=== PATIENT | female | born 1965 | race Caucasian/White ===

== ENCOUNTER 2016-09-25 11:42 | Day surgery (SDC) | payer BC ==
[~2016-09-25] VITALS: Ht 160 cm; Wt 77.1 kg
[~2016-09-25 11:42] MED LIST: COZAAR50 MG PO; TYLENOL WITH C1 EACH PO; ULTRAM50 MG PO
== END 2016-09-25 15:15 | disposition home or self-care (01) ==
LOC: PAIN 11:42
DX: M47.812 Spondylosis without myelopathy or radiculopathy, cervical region (principal); M54.2 Cervicalgia; M47.816 Spondylosis without myelopathy or radiculopathy, lumbar region; M79.1 Myalgia; M53.3 Sacrococcygeal disorders, not elsewhere classified; M47.814 Spondylosis without myelopathy or radiculopathy, thoracic region; I10 Essential (primary) hypertension; Z87.891 Personal history of nicotine dependence; Z79.891 Long term (current) use of opiate analgesic
CPT/HCPCS: J1030; J1885; J2250; J3010; S0020

== ENCOUNTER 2016-10-02 10:40 | Day surgery (SDC) | payer BC ==
[~2016-10-02] VITALS: Ht 160 cm; Wt 77.1 kg
== END 2016-10-02 12:32 | disposition home or self-care (01) ==
LOC: PAIN 10:40 → SDC 11:30 → PAIN 11:30
DX: M47.812 Spondylosis without myelopathy or radiculopathy, cervical region (principal); M54.2 Cervicalgia; M47.816 Spondylosis without myelopathy or radiculopathy, lumbar region; M47.814 Spondylosis without myelopathy or radiculopathy, thoracic region; M53.3 Sacrococcygeal disorders, not elsewhere classified; I10 Essential (primary) hypertension; M79.1 Myalgia; Z87.891 Personal history of nicotine dependence; Z79.891 Long term (current) use of opiate analgesic
CPT/HCPCS: J1030; J2250; J3010; S0020

== ENCOUNTER 2016-11-27 10:45 | Day surgery (SDC) | payer BC ==
[~2016-11-27] VITALS: Ht 157.5 cm; Wt 78.9 kg
== END 2016-11-27 13:33 | disposition home or self-care (01) ==
LOC: PAIN 10:45 → SDC 11:15 → PAIN 13:33
DX: M47.24 Other spondylosis with radiculopathy, thoracic region (principal); M51.14 Intervertebral disc disorders with radiculopathy, thoracic region; I10 Essential (primary) hypertension; Z87.891 Personal history of nicotine dependence; M79.1 Myalgia; M47.812 Spondylosis without myelopathy or radiculopathy, cervical region; M47.816 Spondylosis without myelopathy or radiculopathy, lumbar region
CPT/HCPCS: J1100; J2250; J3010